=== PATIENT | male | born 1995 | race Caucasian/White ===

== ENCOUNTER 2017-04-29 17:34 | Emergency (ER) | payer SELFPAY ==
[2017-04-29 17:54] VITALS: BMI 22.0
[2017-04-29] MEDS ORDERED: ONDANSETRON 4 MG/2 ML VIAL ONE (18:03)
[2017-04-29] MEDS ORDERED: SODIUM CHLORIDE 1,000 ML IV STA (18:06)
[2017-04-29] MEDS ORDERED: ONDANSETRON 4 MG/2 ML VIAL IVPB ONE (18:06)
--- NOTE | 2017-04-29 18:06 | PDOC ---
History of Present Illness - General History Source: Patient Exam Limitations: No Limitations - History of Present Illness Initial Comments: 04/29/17 18:27 The patient is a 21 year old male with a significant past medical history of vocal cord paralysis, TE fistula, headaches, and seizures, who presents to the ED with a headache and 10x vomiting. Patient states he has had similar symptoms in the past but never as severe as today. Patient denies any fever, chills, diarrhea, abdominal pain. Patient last saw his Neurologist in October, when he increased his dose of Keppra. Patient last took his medication last night. He denies having any symptoms from the Keppra medication. Neurologist: Dr. Gray [phone] <Scar Wong - Last Filed: 04/29/17 18:27> <Huber Bowles - Last Filed: 04/29/17 19:07> - General Chief Complaint: Nausea/Vomiting Stated Complaint: VOMITING Time Seen by Provider: 04/29/17 18:06 Past History <Scar Wong - Last Filed: 04/29/17 18:27> - Past Medical History Seizures: Yes Other medical history: TE FISTULA, VOCAL CORD PARALYSIS - Surgical History Appendectomy: Yes - Psycho/Social/Smoking Cessation Hx Anxiety: No Suicidal Ideation: No Smoking History: Never smoked Have you smoked in the past 12 months: No Information on smoking cessation initiated: No Hx Alcohol Use: Yes (SOCIAL) Drug/Substance Use Hx: No Substance Use Type: Alcohol <Huber Bowles - Last Filed: 04/29/17 19:07> - Past Medical History Allergies/Adverse Reactions: Allergies Allergy/AdvReac Type Severity Reaction Status Date / Time No Known Allergies Allergy Verified 04/29/17 17:36 Home Medications: Ambulatory Orders Levetiracetam [Keppra Xr -] 1,500 mg PO DAILY 10/28/16 Levetiracetam [Keppra Xr -] 250 mg PO DAILY #14 tab 10/28/16 Ondansetron [Zofran Odt -] 1 - 2 tab SL TID PRN #15 od.tablet 04/29/17 Review of Systems - Review of Systems Able to Perform ROS?: Yes Comments:: 04/29/17 18:27 GENERAL/CONSTITUTIONAL: No fever or chills. No weakness. HEAD, EYES, EARS, NOSE AND THROAT: No change in vision. No ear pain or discharge. No sore throat. CARDIOVASCULAR: No chest pain or shortness of breath. RESPIRATORY: No cough, wheezing, or hemoptysis. GASTROINTESTINAL: + nausea, + 10x vomiting. No diarrhea or constipation. GENITOURINARY: No dysuria, frequency, or change in urination. MUSCULOSKELETAL: No joint or muscle swelling or pain. No neck or back pain. SKIN: No rash NEUROLOGIC: + headache. No vertigo, loss of consciousness, or change in strength /sensation. ENDOCRINE: No increased thirst. No abnormal weight change. HEMATOLOGIC/LYMPHATIC: No anemia, easy bleeding, or history of blood clots. ALLERGIC/IMMUNOLOGIC: No hives or skin allergy. <Scar Wong - Last Filed: 04/29/17 18:27> *Physical Exam - Vital Signs Last Vital Signs Temp Pulse Resp BP Pulse Ox 98.7 F 66 16 106/73 97 04/29/17 17:35 04/29/17 17:35 04/29/17 17:35 04/29/17 18:07 04/29/17 17:35 - Physical Exam Comments: 04/29/17 18:28 GENERAL: Awake, alert, and fully oriented, in no acute distress HEAD: No signs of trauma EYES: PERRLA, EOMI, sclera anicteric, conjunctiva clear. Normal vessels, no edema of the optic disc. Good pulsations. ENT: Dry mucosa. Auricles normal inspection, hearing grossly normal, nares patent, oropharynx clear without exudates. NECK: Normal ROM, supple, no lymphadenopathy, JVD, or masses LUNGS: Breath sounds equal, clear to auscultation bilaterally. No wheezes, and no crackles HEART: Regular rate and rhythm, normal S1 and S2, no murmurs, rubs or gallops ABDOMEN: Soft, nontender, normoactive bowel sounds. No guarding, no rebound. No masses EXTREMITIES: Normal range of motion, no edema. No clubbing or cyanosis. No cords, erythema, or tenderness NEUROLOGICAL: Cranial nerves II through XII grossly intact. Normal speech, normal gait SKIN: Warm, Dry, normal turgor, no rashes or lesions noted. <Scar Wong - Last Filed: 04/29/17 18:27> - Vital Signs Last Vital Signs Temp Pulse Resp BP Pulse Ox 98.7 F 66 16 106/73 97 04/29/17 17:35 04/29/17 17:35 04/29/17 17:35 04/29/17 17:35 04/29/17 17:35 <Huber Bowles - Last Filed: 04/29/17 19:07> ED Treatment Course - LABORATORY CBC & Chemistry Diagram: 04/29/17 18:07 04/29/17 18:07 - Medications Given in the ED: ED Medications Discontinued Medications Generic Name Dose Route Start Last Admin Trade Name Ricky PRN Reason Stop Dose Admin Ondansetron HCl 4 mg 04/29/17 18:06 04/29/17 18:09 Zofran Injection IVPB 04/29/17 18:07 4 mg ONCE ONE Administration <Scar Wong - Last Filed: 04/29/17 18:27> - LABORATORY CBC & Chemistry Diagram: 04/29/17 18:07 04/29/17 18:07 <Huber Bowles - Last Filed: 04/29/17 19:07> Medical Decision Making - Medical Decision Making 04/29/17 19:03 Patient has a long history of epilepsy and recurrent headaches accompanied by nausea and vomiting. He is maintained on 2000 mg of Keppra taken all at once each evening. He had his evening dose last night, began vomiting this morning. He is not due for another dose of Keppra until this evening. His neurologist apparently sent him in, according to his mother, for intravenous Keppra because of the vomiting, to ensure that he does not miss a dose. Neurologist has been paged twice through [facility] epilepsy center to confirm desired intravenous dose of Keppra. No call has been received thus far. Patient signed out to Dr. Quiñones pending return call from neurologist Patient's headache, nausea, and vomiting have subsided. He feels much better. Received intravenous fluids, Zofran, and Toradol with good results. <Huber Bowles - Last Filed: 04/29/17 19:07> *DC/Admit/Observation/Transfer - Attestations Scribe Attestion: 04/29/17 18:29 Documentation prepared by Scar Wong, acting as medical authorization specialist for Huber Mccauley MD. <Scar Wong - Last Filed: 04/29/17 18:27> <Huber Bowles - Last Filed: 04/29/17 19:07> - Discharge Dispostion Condition at time of disposition: Stable - Prescriptions Prescriptions: Ondansetron [Zofran Odt -] 1 - 2 tab SL TID PRN #15 od.tablet PRN Reason: Nausea And/Or Vomiting
[2017-04-29 18:21] LABS: BASOPHIL 0.2 % (0-2.0)
[2017-04-29] MEDS ORDERED: KETOROLAC TROMETHAMINE 30 MG/1 ML VIAL ONE (18:22)
[2017-04-29 18:28] LABS: MCH 29.5 pg (25.7-33.7); MEAN CELL VOLUME 86.7 fl (80-96); MEAN PLT VOLUME 10.8 fl (7.5-11.1); NEUTROPHILS 89.4 % (42.8-82.8); PLATELET COUNT 205 K/MM3 (134-434); RDW 12.6 % (11.9-15.9); WHITE BLOOD COUNT 14.4 K/mm3 (4.0-10.8)
[2017-04-29 18:37] LABS: ALBUMIN 4.5 g/dl (3.5-5.0); ALK PHOS 83 U/L (32-92); ANION GAP 9 (8-16); BILIRUBIN,TOTAL 0.4 mg/dl (0.2-1.0); CALCIUM 9.4 mg/dl (8.4-10.2); CO2 25 mmol/L (22-28); CREATININE 0.7 mg/dl (0.6-1.3); GLUCOSE,RANDOM 110 mg/dl (74-106); SGOT/AST 25 U/L (10-42); SGPT/ALT 48 U/L (10-40); TOT PROT 7.5 g/dl (6.4-8.3)
[2017-04-29] MEDS ORDERED: KETOROLAC TROMETHAMINE 30 MG/1 ML VIAL IVPUSH ONE (18:37)
[2017-04-29 18:48] VITALS: BP 103/69; PULSE 64; TEMP 97.8
[2017-04-29] MEDS ORDERED: levETIRAcetam 500 MG/5 ML INJECTION VIAL IVPB ONE ×4 (19:11→19:22)
--- NOTE | 2017-04-29 19:41 | PDOC ---
*Physical Exam - Vital Signs Last Vital Signs Temp Pulse Resp BP Pulse Ox 97.8 F 64 16 103/69 97 04/29/17 18:47 04/29/17 18:47 04/29/17 18:47 04/29/17 18:47 04/29/17 17:35 ED Treatment Course - LABORATORY CBC & Chemistry Diagram: 04/29/17 18:07 04/29/17 18:07 - ADDITIONAL ORDERS Additional order review: Laboratory Results 04/29/17 18:07 Sodium 133 L Potassium 3.9 Chloride 99 Carbon Dioxide 25 Anion Gap 9 BUN 10 D Creatinine 0.7 Creat Clearance w eGFR > 60 Random Glucose 110 H D Calcium 9.4 Total Bilirubin 0.4 D AST 25 ALT 48 H D Alkaline Phosphatase 83 Total Protein 7.5 Albumin 4.5 04/29/17 18:07 RBC 5.00 MCV 86.7 MCHC 34.0 RDW 12.6 MPV 10.8 D Neutrophils % 89.4 H D Lymphocytes % 7.6 L D Monocytes % 2.8 L Eosinophils % 0.0 D Basophils % 0.2 - Medications Given in the ED: ED Medications Discontinued Medications Generic Name Dose Route Start Last Admin Trade Name Freq PRN Reason Stop Dose Admin Sodium Chloride 1,000 mls @ 1,000 mls/hr 04/29/17 18:06 04/29/17 18:07 Normal Saline - IV 04/29/17 19:05 1,000 mls/hr ASDIR STA Administration Ketorolac Tromethamine 30 mg 04/29/17 18:37 04/29/17 18:25 Toradol Injection - IVPUSH 04/29/17 18:38 30 mg ONCE ONE Administration Levetiracetam 1,000 mg 04/29/17 19:11 04/29/17 19:23 Keppra Injection - IVPB 04/29/17 19:12 Not Given ONCE ONE Levetiracetam 1,300 mg 04/29/17 19:22 04/29/17 19:35 Keppra Injection - IVPB 04/29/17 19:23 1,300 mg ONCE ONE Administration Ondansetron HCl 4 mg 04/29/17 18:06 04/29/17 18:09 Zofran Injection IVPB 04/29/17 18:07 4 mg ONCE ONE Administration Progress Note - Progress Note Progress Note: Care of this patient was transferred to me from Dr. Solis at 7 PM. Patient is a 21-year-old male who comes in with his mother for evaluation of a migraine headache and vomiting. Patient has a seizure disorder and is on Keppra by mouth but he vomited his dose today. Patient otherwise was given Zofran and fluids and feels much better however his mother was concerned that he may vomit his Keppra. Patient is on 2000 mg Keppra extended release taken once a day in the p.m. I called patient's neurologist as this is a very large dose and I was uncomfortable giving him 2000 mg IV. After discussion with his neurologist she recommended that we give him 20 mg/kg Keppra and discharge him home. Patient was given 1300 mg of Keppra and discharged home and will follow-up with neurologist and primary care doctor. *DC/Admit/Observation/Transfer Diagnosis at time of Disposition: Seizure disorder Migraine Qualifiers: Migraine type: unspecified Status migrainosus presence: without status migrainosus Intractability: not intractable Qualified Code(s): G43.909 - Migraine, unspecified, not intractable, without status migrainosus - Discharge Dispostion Disposition: HOME Condition at time of disposition: Stable - Prescriptions Prescriptions: Ondansetron [Zofran Odt -] 1 - 2 tab SL TID PRN #15 od.tablet PRN Reason: Nausea And/Or Vomiting - Patient Instructions Additional Instructions: Take Tylenol Motrin or Excedrin as needed for pain. If you have any further nausea get the prescription for Zofran filled and take it as directed. Follow-up with your neurologist in the morning. Return to the emergency department immediately with ANY new, persistent or worsening symptoms. Continue any medications as previously prescribed by your physician. You should follow up with your primary doctor as soon as possible regarding today's emergency department visit. . Please make sure your doctor reviews the results of your emergency evaluation. Thank you for coming to the Emergency Department today for your care. It was a pleasure to see you today. Please note that your evaluation is INCOMPLETE until you follow-up with your doctor.
== END 2017-04-29 20:26 | disposition home or self-care (01) ==
LOC: FER 17:34
PROC: 3E0333Z Introduction of Anti-inflammatory into Peripheral Vein, Percutaneous Approach (ICD-10-PCS; principal; 2017-04-29)
PROC: 3E033GC Introduction of Other Therapeutic Substance into Peripheral Vein, Percutaneous Approach (ICD-10-PCS; 2017-04-29)
PROC: 3E0337Z Introduction of Electrolytic and Water Balance Substance into Peripheral Vein, Percutaneous Approach (ICD-10-PCS; 2017-04-29)
DX: G40.909 Epilepsy, unspecified, not intractable, without status epilepticus (principal); L98.8 Other specified disorders of the skin and subcutaneous tissue; J38.3 Other diseases of vocal cords
CPT/HCPCS: 36415; 80053; 85025; 99283-25

== ENCOUNTER 2021-06-16 16:55 | Emergency (ER) | payer BC ==
[2021-06-16 17:17] VITALS: BP 133/89; PULSE 100; TEMP 98.5; BMI 22.0
[2021-06-16] MEDS ORDERED: levETIRAcetam 500 MG/5 ML INJECTION VIAL IVPB ONE ×2 (17:21→17:24)
[2021-06-16] MEDS ORDERED: ACETAMINOPHEN 325 MG TABLET (FP) PO ONE (17:28)
[2021-06-16] MEDS ORDERED: ACETAMINOPHEN 500 MG TABLET (FP) ONE (17:40)
== END 2021-06-16 18:02 | disposition home or self-care (01) ==
LOC: FER 16:55
PROC: 3E033NZ Introduction of Analgesics, Hypnotics, Sedatives into Peripheral Vein, Percutaneous Approach (ICD-10-PCS; principal; 2021-06-16)
DX: R56.9 Unspecified convulsions (principal)
CPT/HCPCS: 99284-25

== ENCOUNTER 2024-01-15 19:35 | Emergency (ER) | payer BC, OTHER ==
[2024-01-15 19:45] VITALS: BP 119/75; PULSE 110; RESP 18; TEMP 98.5; BMI 22.1
[2024-01-15] MEDS ORDERED: ACETAMINOPHEN 500 MG TABLET (FP) ONE (21:12)
[2024-01-15] MEDS ORDERED: levETIRAcetam 500 MG/5 ML INJECTION VIAL IVPB ONE (21:13)
[2024-01-15] MEDS ORDERED: ONDANSETRON 4 MG/2 ML VIAL ONE (21:13)
[2024-01-15] MEDS: ACETAMINOPHEN 500 MG TABLET (FP) PO ONE (21:27)
[2024-01-15] MEDS: levETIRAcetam 500 MG/5 ML INJECTION VIAL IVPB ONE (21:27)
[2024-01-15] MEDS: ONDANSETRON 4 MG/2 ML VIAL IVPUSH ONE (21:28)
== END 2024-01-15 22:28 | disposition home or self-care (01) ==
LOC: FER 19:35
PROC: 3E033GC Introduction of Other Therapeutic Substance into Peripheral Vein, Percutaneous Approach (ICD-10-PCS; principal; 2024-01-15)
PROC: 3E033GC Introduction of Other Therapeutic Substance into Peripheral Vein, Percutaneous Approach (ICD-10-PCS; 2024-01-15)
DX: G40.909 Epilepsy, unspecified, not intractable, without status epilepticus (principal); R51.9 Headache, unspecified; R11.0 Nausea
CPT/HCPCS: 36415; 80177; 99284-25